=== PATIENT | female | born 2005 | race Two or more races ===

== ENCOUNTER 2024-07-20 09:18 | Emergency (ER) | payer OTHER ==
[~2024-07-20] VITALS: Ht 162.6 cm; Wt 60.3 kg
[2024-07-20] MEDS ORDERED: CEFTRIAXONE SODIUM 500 MG VIAL IM STA (11:07)
[2024-07-20] MEDS ORDERED: FAMOTIDINE/PF 20 MG/2 ML VIAL IV PUSH STA (11:07)
[2024-07-20] MEDS ORDERED: ONDANSETRON HCL 2 MG/ML VIAL IM STA (11:08)
[2024-07-20] MEDS ORDERED: AMOX-CLAV 875-1 EAC1 PO (11:51)
== END 2024-07-20 12:27 | disposition home or self-care (01) ==
LOC: ER 09:20
DX: A49.3 Mycoplasma infection, unspecified site (principal)